=== PATIENT | female | born 1985 | race Two or more races ===

== ENCOUNTER 2024-05-31 00:20 | Emergency (ER) | payer MEDICAID, SELFPAY ==
[2024-05-31 00:22] VITALS: BMI 24.5
[2024-05-31 00:35] VITALS: BP 158/94; PULSE 95; RESP 20; TEMP 37.1; O2SAT 98
--- NOTE | 2024-05-31 00:49 | EDNOTE_ITS ---
ED General RME/HPI General Chief complaint: Abdominal Pain Stated complaint: Right abdominal pain radiating to flank NV Time Seen by Provider: 05/31/24 00:35 Source: patient, RN notes reviewed and old records reviewed Arrival date/time: 05/31/24 00:20 Mode of arrival: ambulatory Limitations: no limitations RME / HPI RME / HPI narrative: 39yof presents to ED for generalized burning sensation. Patient reports history of February 2024. Since then, patient reports burning to incision that spreads to entire body. She has seen her PCP multiple times for same complaint. No fever, shortness of breath, chest pain, vomiting/diarrhea, abdominal pain or urinary symptoms reported. Ibuprofen taken yesterday with mild relief. Industrial Ecologist used for [place] Islander translation. Related Data Home Medications ?Medication ?Instructions ?Recorded ?Confirmed prenat.vits,zeferino,[id number] 1 tab PO QDAY 11/06/23 01/17/24 Previous Rx's ?Medication ?Instructions ?Recorded acetaminophen 500 mg tablet 1,000 mg (2 x 500 mg) PO Q6H PRN 05/31/24 (Tylenol Extra Strength) pain #60 tabs ibuprofen 600 mg tablet 600 mg PO Q6H PRN pain #30 tabs 05/31/24 Allergies Allergy/AdvReac Type Severity Reaction Status Date / Time shrimp Allergy Unknown Verified 03/29/24 13:56 wheat Allergy Unknown Verified 03/29/24 13:56 chicken derived Allergy Anaphylaxis Unverified 03/29/24 13:56 guava Allergy Anaphylaxis Verified 03/29/24 13:56 pineapple Allergy Anaphylaxis Verified 03/29/24 13:56 CHICKEN BROTH Allergy Anaphylaxis Uncoded 03/29/24 13:56 chicken seasoning Allergy Uncoded 03/29/24 13:56 Review of Systems Review of Systems Systems Reviewed: All systems reviewed, normal except as documented Constitutional Constitutional: Denies chills, Denies fever(s) and Denies headache(s) ENT Ears, Nose, Mouth, and Throat: Denies headache(s) Cardiovascular Cardiovascular: Denies chest pain and Denies dyspnea Respiratory Respiratory: Denies dyspnea Gastrointestinal Gastrointestinal: Denies abdominal pain, Denies loose stools, Denies nausea and Denies vomiting Genitourinary Genitourinary: Denies dysuria, Denies flank pain, Denies hematuria and Denies pelvic pain Integumentary/Breasts Skin/Breast: Denies rash Neurologic Neurologic: Denies headache(s) Past Medical History Past Medical History CARDIAC: Positive Hypertension Surgical History SURGICAL: Positive Section Social History SMOKING STATUS: Never smoker SUBSTANCE USE: does not use ALCOHOL: Never ED Exam General Limitations: Present no limitations General appearance: Present alert and in no apparent distress Head Head exam: Present atraumatic and normocephalic Eye Eye exam: Present normal appearance, PERRL and EOMI ENT ENT exam: Present normal exam and mucous membranes moist Neck Neck exam: Present normal inspection and full ROM Chest Chest inspection: Present normal inspection and symmetric chest wall rise Respiratory Respiratory exam: Present normal lung sounds bilaterally; Absent respiratory distress Cardiovascular Cardiovascular exam: Present regular rate and normal rhythm Abdominal Exam Abdominal exam: Present soft; Absent distention, tenderness, guarding or rebound Extremities Exam Extremities exam: Present normal inspection and full ROM Back Exam Back exam: Absent CVA tenderness (R) or CVA tenderness (L) Neurological Exam Neurological exam: Present alert and oriented X3 Psychiatric Psychiatric exam: Present normal affect and normal mood Skin Skin exam: Present warm, dry, intact and normal color Course Quality Measures none Orders Category Date Time Status CBC Stat Lab 05/31/24 01:01 Completed CMP [Comprehensive Metabolic Panel] Stat Lab 05/31/24 01:01 Completed HCG Qualitative,Urine Stat Lab 05/31/24 02:40 Completed UA [Urinalysis] Stat Lab 05/31/24 02:40 Completed Acetaminophen Tab [Tylenol ES Tab] Med 05/31/24 00:50 Discontinued 1,000 mg PO X1 ONE HYDROcodone/APAP 10/325 [[place] 10/325] Med 05/31/24 02:53 Discontinued 1 tab PO X1 ONE Ketorolac Inj [Toradol Inj] Med 05/31/24 00:50 Discontinued 30 mg IM X1 ONE Vital Signs Vital signs: Vital Signs Temperature 98.8 F 05/31/24 00:35 Pulse Rate 95 05/31/24 00:35 Respiratory Rate 20 05/31/24 00:35 Blood Pressure 158/94 H 05/31/24 00:35 Pulse Oximetry (%) 98 05/31/24 00:35 Oxygen Delivery Method Room Air 05/31/24 00:35 [facility] Patient data External records reviewed:: [facility] previous records (03/29/2024 ED visit for skin infection) Clinical information provided by:: patient Social determinants that could affect healthcare access:: other (specify) (Poor access to healthcare, acculturation difficulty) Patient has the following chronic illnesses:: Hypertension How is presenting disease/condition affected by chronic disease/condition?: e xacerbated by Evaluation data The following diagnostics were reviewed and interpreted by me:: lab results Lab and/or radiology exams considered but not ordered:: CT abdomen/pelvis: Denies abdominal pain. No tenderness on exam Interpretation Summary: No leukocytosis Electrolytes wnl UA negative Medications Medications considered but not ordered:: No antibiotics recommended at this time Medication administrations:: Medication Administration History Discontinued Medications Acetaminophen (Acetaminophen 500 Mg Tablet) 1,000 mg PO X1 ONE Stop: 05/31/24 00:51 Last Admin: 05/31/24 01:24 Dose: 1,000 mg Documented By: ROBERT Hydrocodone Bitart/Acetaminophen (Hydrocodone/Apap 10/325 Tab) 1 tab PO X1 ONE Stop: 05/31/24 02:54 Last Admin: 05/31/24 03:02 Dose: 1 tab Documented By: MARIE Ketorolac Tromethamine (Ketorolac Inj 60 Mg/2 Ml Vial) 30 mg IM X1 ONE Stop: 05/31/24 00:51 Last Admin: 05/31/24 01:24 Dose: 30 mg Documented By: ROBERT Above medications administered in ED Consultations Consultation(s) initiated? (list below): No Diagnosis Differential Diagnosis ED Complaint MDM: Rash, contact dermatitis, cellulitis, abscess, allergic reaction, tinea Most likely diagnosis given after review of the tests above:: Generalized pain Admission Indicated Admission indicated?: not indicated Explain why admission is indicated or not indicated:: Patient is clinically stable for outpatient management Admission Request Was there a request for admission?: No Disposition Plan Disposition Plan: Discharge Discharge Attestation Discharge Attestation: The patient and all family members were given an opportunity to ask questions and understood the discharge instructions. Discharge instructions specifically effects, indications for sooner follow up or return to the emergency department, and the expected course of current diagnosis. Patient condition: Stable Medical Decision Making MDM Narrative MDM Narrative: 39yof presents to ED for generalized burning sensation. Patient reports history of February 2024. Since then, patient reports burning to incision that spreads to entire body. She has seen her PCP multiple times for same complaint. No fever, shortness of breath, chest pain, vomiting/diarrhea, abdominal pain or urinary symptoms reported. Ibuprofen taken yesterday with mild relief. Labs reviewed and reassuring. No evidence of infection on exam. Recommended close follow-up with PCP if symptoms persist or worsen. Stable for discharge, RTED precautions given. Differential Diagnosis Differential Diagnosis: Rash, contact dermatitis, cellulitis, abscess, allergic reaction, tinea Lab Data 05/31/24 01:01 05/31/24 01:01 Labs: Lab Results 05/31/24 05/31/24 Range/Units 01:01 02:40 WBC 7.4 (3.6-11.0) Thou/mm3 RBC 4.97 (4.00-5.20) Miln/mm3 Hgb 13.8 (12.0-16.0) g/dL Hct 40.2 (36.0-46.0) % MCV 81 (80-100) fL MCH 27.8 (25.0-35.0) pg MCHC 34.3 (31.0-37.0) g/dl RDW Std Deviation 35.5 L (36.4-46.3) fL Plt Count 388 (140-440) Thou/mm3 Neut % (Auto) 60 (37-80) % Lymph % (Auto) 28 (10-50) % [place] % (Auto) 7 (0-12) % Eos % (Auto) 4 (0-10) % Baso % (Auto) 0 (0-2.5) % Neut # (Auto) 4.5 (1.8-7.7) Thou/mm3 Lymph # (Auto) 2.1 (1.0-4.8) Thou/mm3 [place] # (Auto) 0.5 (0.0-0.8) Thou/mm3 Eos # (Auto) 0.3 (0.0-0.5) Thou/mm3 Baso # (Auto) 0.0 (0.0-0.2) Thou/mm3 Immature Gran # (Auto) 0.01 H (0.00-0.00) Thou/mm3 Absolute Nucleated RBC 0.00 (0.00-0.00) Thou/mm3 Immature Gran % 0 (0-0) % Nucleated RBC % 0 (0) /100 WBC Sodium 138 (136-145) mMol/L Potassium 3.9 (3.4-5.1) mMol/L Chloride 103 (98-107) mMol/L Carbon Dioxide 28.0 (20.0-31.0) mMol/L Anion Gap 7 (7-16) BUN 10 (9-23) mg/dL Creatinine 0.7 (0.6-1.3) mg/dL Estim Creat Clear Calc 89.0 (>60) mL/min eGFR > 60 (60 - ) See Note BUN/Creatinine Ratio 14 (12-20) Ratio Glucose 111 H (74-106) mg/dL Calculated Osmolality 275 (275-295) Calcium 10.1 (8.3-10.6) mg/dL Corrected Calcium 10.1 (8.5-10.1) mg/dL Total Bilirubin 0.4 (0.3-1.2) mg/dL AST 18 (0-34) U/L ALT 15 (10-49) U/L Alkaline Phosphatase 82 (46-116) U/L Total Protein 7.7 (5.7-8.2) gm/dL Albumin 5.2 H (3.5-5.0) gm/dL Globulin 2.5 (2.3-3.5) gm/dL Albumin/Globulin Ratio 2.1 (1.2-2.2) Ur Collection Type Clean Catch Urine Color Colorless A (Lt Yel-Yel) Urine Clarity Clear (Clear/Hazy) Urine pH 6.5 (5.0-7.0) Ur Specific [place] 1.007 (1.001-1.035) Urine Protein Negative (Neg - Trace) Urine Glucose (UA) Negative (Negative) Urine Ketones Negative (Negative) Urine Blood Negative (Negative) Urine Nitrite Negative (Negative) Urine Bilirubin Negative (Negative) Urine Urobilinogen (Auto) Negative (0.0-1.0) mg/dL Ur Leukocyte Esterase Negative (Negative) Urine RBC 1 (0-3) /hpf Urine WBC 2 (0-5) /hpf Ur Squamous Epith Cells 5 (0-5) /hpf Urine Bacteria Rare (None) Urine HCG, Qual Negative Discharge Plan Plan Patient Disposition: HOME (Self Care) Patient condition on transfer: Stable Prescriptions/Referrals Prescriptions/Med Rec: New acetaminophen [Tylenol Extra Strength] 500 mg tablet 1,000 mg PO Q6H PRN (Reason: pain) Qty: 60 0RF ibuprofen 600 mg tablet 600 mg PO Q6H PRN (Reason: pain) Qty: 30 0RF No Action prenat.vits,zeferino,[id number] Tablet 1 tab PO QDAY Referrals: Zaid Croft MD [Primary Care Provider] - In 1 week Problem List Clinical Impression: Generalized pain Patient/Caregiver Discharge Instructions Education Materials: ED Pain, Acute, Uncertain Cause Print Language: [place] Island[place] Stand Alone Forms: Jayna Award Info., Patient Portal Info Letter PA/EQUIPMENT TECH Supervising Physician PA/EQUIPMENT TECH Supervising Physician: Lalo
[2024-05-31 01:15] LABS: Basophils % (Auto) 0 % (0-2.5); Eosinophils # (Auto) 0.3 Thou/mm3 (0.0-0.5); Eosinophils % (Auto) 4 % (0-10); Hematocrit 40.2 % (36.0-46.0); Hemoglobin 13.8 g/dL (12.0-16.0); Immature Granulocytes % (Auto) 0 % (0-0); Immature Granulocytes Auto 0.01 Thou/mm3 (0.00-0.00); Lymphocytes # (Auto) 2.1 Thou/mm3 (1.0-4.8); Lymphocytes % (Auto) 28 % (10-50); Mean Corpuscular HGB Conc 34.3 g/dl (31.0-37.0); Mean Corpuscular Hemoglobin 27.8 pg (25.0-35.0); Mean Corpuscular Volume 81 fL (80-100); Monocytes # (Auto) 0.5 Thou/mm3 (0.0-0.8); Monocytes % (Auto) 7 % (0-12); Neutrophils # (Auto) 4.5 Thou/mm3 (1.8-7.7); Neutrophils % (Auto) 60 % (37-80); Nucleated Red Blood Cell % 0 /100 WBC (0); Platelet Count 388 Thou/mm3 (140-440); RDW Standard Deviation 35.5 fL (36.4-46.3); Red Blood Count 4.97 Miln/mm3 (4.00-5.20); White Blood Count 7.4 Thou/mm3 (3.6-11.0)
[2024-05-31] MEDS: ACETAMINOPHEN 500 MG TABLET 1000 MG PO (01:24)
[2024-05-31] MEDS: KETOROLAC INJ 60 MG/2 ML VIAL 30 MG IM (01:24)
[2024-05-31 01:33] LABS: Alanine Aminotransferase 15 U/L (10-49); Albumin, Serum 5.2 gm/dL (3.5-5.0); Albumin/Globulin Ratio 2.1 (1.2-2.2); Alkaline Phosphatase 82 U/L (46-116); Anion Gap 7 (7-16); Aspartate Amino Transferase 18 U/L (0-34); BUN/Creatinine Ratio 14 Ratio (12-20); Bilirubin,Total 0.4 mg/dL (0.3-1.2); Blood Urea Nitrogen 10 mg/dL (9-23); Calcium 10.1 mg/dL (8.3-10.6); Calcium (Corrected) 10.1 mg/dL (8.5-10.1); Chloride 103 mMol/L (98-107); Creatinine (Component) 0.7 mg/dL (0.6-1.3); Globulin 2.5 gm/dL (2.3-3.5); Glucose 111 mg/dL (74-106); Osmolality,Calculated 275 (275-295); Potassium 3.9 mMol/L (3.4-5.1); Sodium 138 mMol/L (136-145); Total Protein 7.7 gm/dL (5.7-8.2); eGFR > 60 See Note
[2024-05-31 02:46] LABS: Collection Type, Urine Clean Catch
[2024-05-31] MEDS: HYDROcodone/APAP 10/325 TAB PO (03:02)
[2024-05-31 03:03] LABS: Bacteria,Urine Rare; Bilirubin,Urine Negative (Negative); Blood,Urine Negative (Negative); Clarity,Urine Clear (Clear/Hazy); Color,Urine Colorless (Lt Yel-Yel); Glucose, Urine Negative (Negative); Ketones,Urine Negative (Negative); Leukocyte Esterase,Urine Negative (Negative); Nitrite,Urine Negative (Negative); PH,Urine 6.5 (5.0-7.0); Protein,Urine Negative (Neg - Trace); RBC,Urine 1 /hpf (0-3); Specific Gravity,Urine 1.007 (1.001-1.035); Squamous Epithelial Cell,Urine 5 /hpf (0-5); Urobilinogen,Urine Negative mg/dL (0.0-1.0); WBC,Urine 2 /hpf (0-5)
[2024-05-31 03:16] LABS: HCG Qualitative,Urine Negative
== END 2024-05-31 03:51 | disposition home or self-care (01) ==
PROVIDERS: Physician Assistant; Emergency Provider Emergency Medicine; PCP Family Medicine
DX: R52 Pain, unspecified (principal)
CPT/HCPCS: 36415; 80053; 81001; 81025; 85025; 96372; 99283; J1885; A9270

== ENCOUNTER 2024-06-04 21:31 | Emergency (ER) | payer MEDICAID, SELFPAY ==
[2024-06-04 21:32] VITALS: BMI 54.1
[2024-06-04 22:12] VITALS: BP 154/92; PULSE 77; RESP 20; TEMP 36.9; O2SAT 99
--- NOTE | 2024-06-04 22:47 | EDRME_ITS ---
Rapid Medical Screening Exam RME Arrival date/time: 06/04/24 21:31 39-year-old female past medical history of section back in February presents emergency department complaining of right-sided flank pain and right- sided abdominal pain patient reports pain is burning in nature 03/01. Chief Complaint: General Adult/Misc Complain Time Seen by Provider: 06/04/24 21:47 Vital signs: Vital Signs Temperature 98.4 F 06/04/24 22:12 Pulse Rate 77 06/04/24 22:12 Respiratory Rate 20 06/04/24 22:12 Blood Pressure 154/92 H 06/04/24 22:12 Pulse Oximetry (%) 99 06/04/24 22:12 Vital signs reviewed by provider: Yes
--- NOTE | 2024-06-04 22:47 | XR_ITS ---
Examination: CT abdomen and pelvis without contrast. Coronal 3-D reconstructions. Sagittal 2-D reconstructions. Date and time of exam:June 05, 2024 1203 hours INDICATIONS: Right flank pain abdominal pain beginning 3 weeks ago Coarsened: 01/21/2021 CTDI: vol (mGy): 6.31 DLP: (mGycm): 337 Technique: Axial images of the abdomen have been obtained, 3 mm slice thickness Intravenous contrast material has not been administered. Low dose protocols were performed. One or more of the following dose reduction techniques were used; automated exposure control, adjustment of the mA and/or KV according to patient size, use of iterative reconstruction technique. Findings: No focal liver or splenic lesion No gallstones No pancreatic or adrenal mass No renal or ureteral calculi, no hydronephrosis 6 mm fat-containing umbilical hernia Aorta normal size Normal appendix No bowel obstruction No adnexal mass Urinary bladder intact The osseous structures are intact IMPRESSION: No acute process in the abdomen or pelvis
[2024-06-04 23:17] LABS: Basophils % (Auto) 1 % (0-2.5); Eosinophils # (Auto) 0.2 Thou/mm3 (0.0-0.5); Eosinophils % (Auto) 4 % (0-10); Hematocrit 37.4 % (36.0-46.0); Hemoglobin 12.7 g/dL (12.0-16.0); Immature Granulocytes % (Auto) 0 % (0-0); Immature Granulocytes Auto 0.02 Thou/mm3 (0.00-0.00); Lymphocytes # (Auto) 2.1 Thou/mm3 (1.0-4.8); Lymphocytes % (Auto) 33 % (10-50); Mean Corpuscular Hemoglobin 27.6 pg (25.0-35.0); Mean Corpuscular Volume 81 fL (80-100); Monocytes # (Auto) 0.5 Thou/mm3 (0.0-0.8); Monocytes % (Auto) 8 % (0-12); Neutrophils # (Auto) 3.5 Thou/mm3 (1.8-7.7); Neutrophils % (Auto) 55 % (37-80); Nucleated Red Blood Cell % 0 /100 WBC (0); Platelet Count 379 Thou/mm3 (140-440); RDW Standard Deviation 36.1 fL (36.4-46.3); White Blood Count 6.4 Thou/mm3 (3.6-11.0)
[2024-06-04] MEDS: KETOROLAC INJ 60 MG/2 ML VIAL 30 MG IM (23:24)
[2024-06-04 23:30] LABS: Alanine Aminotransferase 12 U/L (10-49); Albumin, Serum 5.1 gm/dL (3.5-5.0); Albumin/Globulin Ratio 2.2 (1.2-2.2); Alkaline Phosphatase 71 U/L (46-116); Anion Gap 8 (7-16); Aspartate Amino Transferase 15 U/L (0-34); BUN/Creatinine Ratio 22 Ratio (12-20); Bilirubin,Total 0.4 mg/dL (0.3-1.2); Blood Urea Nitrogen 13 mg/dL (9-23); Calcium 10.2 mg/dL (8.3-10.6); Calcium (Corrected) 10.2 mg/dL (8.5-10.1); Carbon Dioxide 25.9 mMol/L (20.0-31.0); Chloride 104 mMol/L (98-107); Creatinine (Component) 0.6 mg/dL (0.6-1.3); Estimated Creatinine Clearance 160.3 mL/min (>60); Globulin 2.3 gm/dL (2.3-3.5); Glucose 93 mg/dL (74-106); Lipase 36 U/L (12-53); Osmolality,Calculated 275 (275-295); Potassium 4.1 mMol/L (3.4-5.1); Sodium 138 mMol/L (136-145); Total Protein 7.4 gm/dL (5.7-8.2); eGFR > 60 See Note
[2024-06-04 23:33] LABS: Collection Type, Urine Clean Catch
[2024-06-04 23:43] LABS: HCG,Qualitative Serum Negative
[2024-06-05 00:08] LABS: Bacteria,Urine 3+; Bilirubin,Urine Negative (Negative); Blood,Urine Negative (Negative); Clarity,Urine Clear (Clear/Hazy); Color,Urine Colorless (Lt Yel-Yel); Glucose, Urine Negative (Negative); Hyaline Casts,Urine < 1 /hpf (0-1); Ketones,Urine Negative (Negative); Leukocyte Esterase,Urine Positive (Negative); Nitrite,Urine Negative (Negative); PH,Urine 6.5 (5.0-7.0); Protein,Urine Negative (Neg - Trace); RBC,Urine < 1 /hpf (0-3); Specific Gravity,Urine 1.009 (1.001-1.035); Squamous Epithelial Cell,Urine 8 /hpf (0-5); Urobilinogen,Urine Negative mg/dL (0.0-1.0); WBC,Urine 4 /hpf (0-5)
[2024-06-05 00:19] LABS: Culture Indicated,Urine Yes
--- NOTE | 2024-06-05 01:29 | PRELIM_ITS ---
CT scan of the abdomen and pelvis without intravenous contrast (axial sections with sagittal and yenni nal reformats) June 05, 2024 0003 hours Clinical History: Right flank pain and right upper and low er abdominal pain.Comparison: None.Findings:The lung bases are clear.The liver, gallbladder, pancreas , spleen, kidneys and adrenals are unremarkable on this noncontrast study.No evidence of bowel obstru ction. The appendix is within normal limits.There is no mesenteric or retroperitoneal adenopathy.The urinary bladder is unremarkable. There is no free fluid or free air.The osseous structures are unrema rkable.The uterus and ovaries are within normal limits.Impression:No evidence of acute intra-abdomina l or pelvic pathology. Report Electronically Signed By: Magan Duvall 06/05/2024 1:29:15 AM [EST]
--- NOTE | 2024-06-05 03:18 | PD.EDABDPN ---
ED Abdominal Pain RME/HPI General Chief Complaint: General Adult/Misc Complain Stated complaint: BURNING FEELING ON RIGHT SIDE OF BODY Time seen by provider: 06/04/24 21:47 Arrival date/time: 06/04/24 21:31 39-year-old female past medical history of section back in February presents emergency department complaining of right-sided flank pain and right-sided abdominal pain patient reports pain is burning in nature 03/01. Limitations: no limitations RME / HPI RME / HPI narrative: 06/04/24 21:31 39-year-old female past medical history of section back in February presents emergency department complaining of right-sided flank pain and right-sided abdominal pain patient reports pain is burning in nature 03/01. Related Data Home Medications ?Medication ?Instructions ?Recorded ?Confirmed prenat.vits,zeferino,[id number] 1 tab PO QDAY 11/06/23 01/17/24 Previous Rx's ?Medication ?Instructions ?Recorded acetaminophen 500 mg tablet 1,000 mg (2 x 500 mg) PO Q6H PRN 05/31/24 (Tylenol Extra Strength) pain #60 tabs ibuprofen 600 mg tablet 600 mg PO Q6H PRN pain #30 tabs 05/31/24 Allergies Allergy/AdvReac Type Severity Reaction Status Date / Time shrimp Allergy Unknown Verified 03/29/24 13:56 wheat Allergy Unknown Verified 03/29/24 13:56 chicken derived Allergy Anaphylaxis Unverified 03/29/24 13:56 guava Allergy Anaphylaxis Verified 03/29/24 13:56 pineapple Allergy Anaphylaxis Verified 03/29/24 13:56 CHICKEN BROTH Allergy Anaphylaxis Uncoded 03/29/24 13:56 chicken seasoning Allergy Uncoded 03/29/24 13:56 Review of Systems Review of Systems Systems Reviewed: All systems reviewed, normal except as documented Constitutional Constitutional: Reports system reviewed and no additional complaints, except as documented, Denies body ache(s), Denies chills and Denies fever(s) Eyes Eyes: Reports system reviewed and no additional complaints, except as documented and Denies change in vision ENT Ears, Nose, Mouth, and Throat: Reports system reviewed and no additional complaints, except as documented, Denies disequilibrium, Denies dizziness, Denies sore throat and Denies vertigo Cardiovascular Cardiovascular: Reports system reviewed and no additional complaints, except as documented, Denies chest pain and Denies dyspnea Respiratory Respiratory: Reports system reviewed and no additional complaints, except as documented, Denies chest congestion, Denies cough and Denies dyspnea Gastrointestinal Gastrointestinal: Reports system reviewed and no additional complaints, except as documented, Reports abdominal pain, Denies nausea and Denies vomiting Musculoskeletal Musculoskeletal: Reports system reviewed and no additional complaints, except as documented, Denies abnormal gait, Denies arthralgias and Reports back pain Integumentary/Breasts Skin/Breast: Reports system reviewed and no additional complaints, except as documented, Denies erythema, Denies rash and Denies wounds Neurologic Neurologic: Reports system reviewed and no additional complaints, except as documented, Denies abnormal gait, Denies disequilibrium, Denies dizziness and Denies vertigo Past Medical History Past Medical History NEUROLOGIC: Negative Neurological Disorders or Seizures CARDIAC: Positive Cardiac Disorders and Hypertension; Negative Congestive Heart Failure RESPIRATORY: Negative Chronic Obstructive Pulmonary Disease (COPD) or Asthma GASTROINTESTINAL: Positive Gastrointestinal Disorders and Ulcer GENITOURINARY: Negative Genitourinary Disorders or Renal Disease MUSCULOSKELETAL: Negative Musculoskeletal Disorders ENDOCRINE: Negative Endocrine Disorders, Diabetes Mellitus Type 1 or Diabetes Mellitus Type 2 HEMATOLOGIC: Negative Blood Disorders or Sickle Cell Disease OTHER HISTORY: Negative Autoimmune Disease, Falls, Blood Transfusions, Blood Transfusion Reaction, Anesthesia Reactions or Cancer Family History FAMILY HISTORY: Negative Family Psychiatric Problems, Family Respiratory Disorders, Family Cardiac Disorders, Family Gastrointestinal Problems, Family Cancer, Family Surgery or Family Anesthesia Reaction Surgical History SURGICAL: Positive Section Social History SMOKING STATUS: Never smoker SUBSTANCE USE: does not use ED Exam General Limitations: Present no limitations General appearance: Present alert and in no apparent distress Head Head exam: Present atraumatic Eye Eye exam: Present normal appearance, PERRL and EOMI ENT ENT exam: Present normal exam, normal oropharynx and mucous membranes moist Neck Neck exam: Present normal inspection, full ROM and trachea midline Chest Chest inspection: Present normal inspection and symmetric chest wall rise Respiratory Respiratory exam: Present normal lung sounds bilaterally Cardiovascular Cardiovascular exam: Present regular rate, normal rhythm and normal heart sounds Abdominal Exam Abdominal exam: Present soft and normal bowel sounds Extremities Exam Extremities exam: Present normal inspection and full ROM Back Exam Back exam: Present normal inspection and full ROM Neurological Exam Neurological exam: Present alert, oriented X3 and CN II-XII intact Psychiatric Psychiatric exam: Present normal affect and normal mood Skin Skin exam: Present warm, dry, intact and normal color Course Quality Measures none Orders Category Date Time Status CT abdomen pelvis wo con Stat Exams 06/04/24 22:47 Taken CBC Stat Lab 06/04/24 22:58 Completed CMP [Comprehensive Metabolic Panel] Stat Lab 06/04/24 22:58 Completed HCG,Qualitative Serum Stat Lab 06/04/24 22:58 Completed Lipase Stat Lab 06/04/24 22:58 Completed Urinalysis, C/S if Indicated Stat Lab 06/04/24 23:18 Completed Urine Culture Stat Lab 06/04/24 23:18 Received Ketorolac Inj [Toradol Inj] Med 06/04/24 22:47 Discontinued 30 mg IM X1 ONE Vital Signs Vital signs: Vital Signs Temperature 98.4 F 06/04/24 22:12 Pulse Rate 77 06/04/24 22:12 Respiratory Rate 20 06/04/24 22:12 Blood Pressure 154/92 H 06/04/24 22:12 Pulse Oximetry (%) 99 06/04/24 22:12 99% room air with normal limits Abdominal Pain MDM MDM Narrative MDM Narrative:: 39-year-old female past medical history of section back in February presents emergency department complaining of right-sided flank pain and right-sided abdominal pain patient reports pain is burning in nature 03/01. Patient appears nontoxic and is hemodynamic stable. CBC unremarkable for any anemia or leukocytosis. CMP was unremarkable. Urinalysis and CT scanning of abdomen and pelvis was also unremarkable. Patient data External records reviewed:: [facility] previous records Clinical information provided by:: patient Social determinants that could affect healthcare access:: none Patient has the following chronic illnesses:: See chart How is presenting disease/condition affected by chronic disease/condition?: uneffected by Evaluation data The following diagnostics were reviewed and interpreted by me:: lab results and radiology exam(s) Lab and/or radiology exams considered but not ordered:: Ordered Interpretation Summary: Interpreted by me Medications / Prescriptions Medications or Prescriptions considered but not ordered:: Ordered Medication administrations:: Medication Administration History Discontinued Medications Ketorolac Tromethamine (Ketorolac Inj 60 Mg/2 Ml Vial) 30 mg IM X1 ONE Stop: 06/04/24 22:48 Last Admin: 06/04/24 23:24 Dose: 30 mg Documented By: EE Given Consultations Consultation(s) initiated? (list below): No Diagnosis Differential diagnosis abdominal pain: abdominal pain, acute appendicitis, calculus of kidney, constipation, diverticulitis, gastroenteritis and pancreatitis Most likely diagnosis given after review of the tests above:: Abdominal pain Admission Indicated Admission indicated?: not indicated Admission Request Was there a request for admission?: No Disposition Plan Disposition Plan: Discharge Discharge Attestation Discharge Attestation: The patient and all family members were given an opportunity to ask questions and understood the discharge instructions. Discharge instructions specifically effects, indications for sooner follow up or return to the emergency department, and the expected course of current diagnosis. Patient condition: Stable Discharge Plan Plan Patient Disposition: HOME (Self Care) Disposition Comment: Stable Prescriptions/Referrals Prescriptions/Med Rec: No Action prenat.vits,zeferino,[id number] Tablet 1 tab PO QDAY acetaminophen [Tylenol Extra Strength] 500 mg tablet 1,000 mg PO Q6H PRN (Reason: pain) Qty: 60 0RF ibuprofen 600 mg tablet 600 mg PO Q6H PRN (Reason: pain) Qty: 30 0RF Referrals: Zaid Croft MD [Primary Care Provider] - In 1 week Problem List Clinical Impression: Abdominal pain Patient/Caregiver Discharge Instructions Discharge Activity: activity as tolerated Education Materials: Abdominal Pain Additional Instructions: Take [id number] Tylenol or ibuprofen as needed for pain. Follow-up with primary care provider in 2 to 3 days. Return to emergency department for any worsening symptoms or as needed. Print Language: [place]uvian Stand Alone Forms: Jayna Award Info., Patient Portal Info Letter PA/SPINNING FRAME CHANGER Supervising Physician PA/SPINNING FRAME CHANGER Supervising Physician: Dr. Jeffries
[2024-06-05 03:22] VITALS: BP 137/69; PULSE 78; RESP 18; O2SAT 99
== END 2024-06-05 03:31 | disposition home or self-care (01) ==
PROVIDERS: Emergency Provider Emergency Medicine; PCP Family Medicine
DX: R10.9 Unspecified abdominal pain (principal)
CPT/HCPCS: 36415; 74176; 80053; 81001; 83690; 84703; 85025; 87086; 96372; 99284; J1885

== ENCOUNTER 2025-01-06 20:28 | Emergency (ER) | payer MEDICAID, SELFPAY ==
[2025-01-06 20:31] VITALS: BMI 25.4
[2025-01-06 20:45] VITALS: BP 148/89; PULSE 71; RESP 18; TEMP 37.7; O2SAT 99
[2025-01-06 21:39] LABS: Collection Type, Urine Voided
[2025-01-06 21:47] LABS: Bilirubin,Urine Negative (Negative); Blood,Urine 3+ (Negative); Clarity,Urine Clear (Clear/Hazy); Color,Urine Lt-Yellow (Lt Yel-Yel); Glucose, Urine Negative (Negative); Ketones,Urine Negative (Negative); Leukocyte Esterase,Urine Positive (Negative); Nitrite,Urine Negative (Negative); PH,Urine 6.0 (5.0-7.0); Protein,Urine Negative (Neg - Trace); RBC,Urine 93 /hpf (0-3); Specific Gravity,Urine 1.015 (1.001-1.035); Squamous Epithelial Cell,Urine 5 /hpf (0-5); Urobilinogen,Urine Negative mg/dL (0.0-1.0); WBC,Urine 85 /hpf (0-5)
--- NOTE | 2025-01-06 22:52 | EDNOTE_ITS ---
ED Female Urogenital RME/HPI General Chief complaint: General Adult/Misc Complain Stated complaint: PAINFULL URINATION Time Seen by Provider: 01/06/25 20:37 Arrival date/time: 01/06/25 20:28 This is a case of 39-year-old female with no medical history came in in the emergency room due to painful urination burning in character with vaginal irritation and discharge patient was seen 12/29/2023 where she was given cephalexin for urinary tract infection which did not give any relief worsening of the symptoms this patient decided to sought consult here in the emergency room denies any abdominal pain back pain flank pain nausea vomiting denies any fever chills Limitations: no limitations Related Data Home Medications ?Medication ?Instructions ?Recorded ?Confirmed prenat.vits,zeferino,[id number] 1 tab PO QDAY 11/06/23 01/17/24 Previous Rx's ?Medication ?Instructions ?Recorded acetaminophen 500 mg tablet 1,000 mg (2 x 500 mg) PO Q 6H PRN 05/31/24 (Tylenol Extra Strength) pain #60 tabs ibuprofen 600 mg tablet 600 mg PO Q6H PRN pain #30 t abs 05/31/24 fluconazole 200 mg tablet 200 mg PO QDAY #1 tab metronidazole 500 mg tablet 500 mg PO BID #20 tabs phenazopyridine 200 mg tablet 200 mg PO TID #6 tabs (Pyridium) sulfamethoxazole 800 1 tab PO BID #20 tabs mg-trimethoprim 160 mg tablet (Bactrim DS) Allergies Allergy/AdvReac Type Severity Reaction Status Date / Time shrimp Allergy Unknown Verified 01/06/25 22:49 wheat Allergy Unknown Verified 01/06/25 22:49 chicken derived Allergy Anaphylaxis Verified 01/06/25 22:49 guava Allergy Anaphylaxis Verified 01/06/25 22:49 pineapple Allergy Anaphylaxis Verified 01/06/25 22:49 CHICKEN BROTH Allergy Anaphylaxis Uncoded 01/06/25 22:48 chicken seasoning Allergy Uncoded 01/06/25 22:48 Review of Systems Review of Systems Systems Reviewed: All systems reviewed, normal except as documented Constitutional Constitutional: Reports system reviewed and no additional complaints, except as documented and Reports as per HPI Cardiovascular Cardiovascular: Reports system reviewed and no additional complaints, except as documented and Reports as per HPI Respiratory Respiratory: Reports system reviewed and no additional complaints, except as documented and Reports as per HPI Gastrointestinal Gastrointestinal: Reports system reviewed and no additional complaints, except as documented and Reports as per HPI Genitourinary Genitourinary: Reports system reviewed and no additional complaints, except as documented, Reports as per HPI, Denies abnormal menses, Denies abnormal vaginal bleeding, Denies amenorrhea, Denies change in libido, Denies difficulty conceiving, Denies difficulty voiding, Denies dysmenorrhea, Denies dyspareunia, Reports dysuria, Denies flank pain, Denies genital lesions, Denies genital pruritis, Denies hematuria, Denies hot flashes, Denies light periods, Denies menorrhagia, Denies metrorrhagia, Denies nipple discharge, Denies nocturia, Denies pelvic pain, Denies post void dribbling, Denies prolapse symptoms, Denies sexual dysfunction, Denies urinary frequency, Denies urinary incontinence, Denies urinary hesitancy, Reports urinary urgency, Reports vaginal discharge, Denies vaginal dryness, Reports vaginal odor and Reports vaginal pruritus Integumentary/Breasts Skin/Breast: Denies nipple discharge Neurologic Neurologic: Reports system reviewed and no additional complaints, except as documented and Reports as per HPI Psychiatric Psychiatric: Denies change in libido Endocrine Endocrine: Denies change in libido Past Medical History Past Medical History NEUROLOGIC: Negative Neurological Disorders or Seizures CARDIAC: Positive Cardiac Disorders and Hypertension; Negative Congestive Heart Failure RESPIRATORY: Negative Chronic Obstructive Pulmonary Disease (COPD) or Asthma GASTROINTESTINAL: Positive Gastrointestinal Disorders and Ulcer GENITOURINARY: Negative Genitourinary Disorders or Renal Disease MUSCULOSKELETAL: Negative Musculoskeletal Disorders ENDOCRINE: Negative Endocrine Disorders, Diabetes Mellitus Type 1 or Diabetes Mellitus Type 2 HEMATOLOGIC: Negative Blood Disorders or Sickle Cell Disease OTHER HISTORY: Negative Autoimmune Disease, Falls, Blood Transfusions, Blood Transfusion Reaction, Anesthesia Reactions or Cancer Family History FAMILY HISTORY: Negative Family Psychiatric Problems, Family Respiratory Disorders, Family Cardiac Disorders, Family Gastrointestinal Problems, Family Cancer, Family Surgery or Family Anesthesia Reaction Surgical History SURGICAL: Positive Section Social History SMOKING STATUS: Never smoker SUBSTANCE USE: does not use ED Exam General Limitations: Present no limitations General appearance: Present alert, in no apparent distress and other (Patient is awake alert oriented not in distress nontoxic looking well-hydrated well- nourished) Head Head exam: Present atraumatic, normocephalic and normal inspection Eye Eye exam: Present normal appearance, PERRL and EOMI ENT ENT exam: Present normal exam, normal oropharynx and mucous membranes moist Neck Neck exam: Present normal inspection, full ROM and trachea midline; Absent tenderness Chest Chest inspection: Present normal inspection and symmetric chest wall rise; Absent tenderness Respiratory Respiratory exam: Present normal lung sounds bilaterally; Absent respiratory distress, wheezes, stridor, accessory muscle use or prolonged expiratory phase Cardiovascular Cardiovascular exam: Present regular rate, normal rhythm and normal heart sounds; Absent bradycardia, tachycardia, irregular rhythm, systolic murmur or diastolic murmur Abdominal Exam Abdominal exam: Present soft and normal bowel sounds; Absent distention, tenderness, guarding, rebound, rigidity, diminished bowel sounds, hyperactive bowel sounds, hypoactive bowel sounds, organomegaly, trauma, incision, psoas sign, obturator sign, heel tap sign, Kirby's sign, Rovsing's sign, tenderness at McBurney's Point or hernia Extremities Exam Extremities exam: Present normal inspection and full ROM Back Exam Back exam: Present normal inspection and full ROM Neurological Exam Neurological exam: Present alert, oriented X3, CN II-XII intact, normal gait and reflexes normal; Absent motor sensory deficit Psychiatric Psychiatric exam: Present normal affect and normal mood Skin Skin exam: Present warm, dry, intact and normal color Course Quality Measures none Orders Category Date Time Status Bacterial Vaginal Panel Stat Lab 01/06/25 Ordered GC Culture Stat Lab 01/06/25 21:05 Received Urinalysis Stat Lab 01/06/25 21:30 Completed cefTRIAXone [Rocephin] 1,000 mg Med 01/06/25 22:36 Discontinued Lidocaine 1% 20 ml [Xylocaine 1% 20 ML] 2.1 ml IM X1 Vital Signs Vital signs: Vital Signs Temperature 99.8 F 01/06/25 20:45 Pulse Rate 71 01/06/25 20:45 Respiratory Rate 18 01/06/25 20:45 Blood Pressure 148/89 H 01/06/25 20:45 Pulse Oximetry (%) 99 01/06/25 20:45 Oxygen Delivery Method Room Air 01/06/25 20:45 Patient is afebrile not tachycardic not tachypneic BP stable not hypoxic oxygen saturation is 99% in room air Urogenital - Female MDM Narrative MDM Narrative:: This is a case of 39-year-old female with no medical history came in in the emergency room due to painful urination burning in character with vaginal irritation and discharge patient was seen 12/29/2023 where she was given cephalexin for urinary tract infection which did not give any relief worsening of the symptoms this patient decided to sought consult here in the emergency room denies any abdominal pain back pain flank pain nausea vomiting denies any fever chills patient physical examination patient is awake alert oriented not in distress nontoxic looking well-hydrated well-nourished abdominal exam is benign nonsurgical no guarding no rebound no rigidity no tenderness no CVA tenderness negative psoas negative straight or negative Rovsing's negative Kermit's no Kirby sign negative CVA tenderness bladder is not distended not tender pelvic exam was deferred patient refused STD test was ordered and bacterial vaginosis was also ordered pending result urinalysis showed blood and WBC in the urine suggestive of urinary tract infection patient was given ceftriaxone IM here in [facility] emergency room and was prescribed with Bactrim for UTI patient was also prescribed with Diflucan for possible Anneliese infection and metronidazole for vaginitis safe sex was advised patient will follow-up with PCP in 2 days for evaluation worsening symptoms or any emergent concern advised to return to the emergency room immediately or call [phone] Patient was advised to call medical records for the results of his test Patient was discharged with comfortable condition walking with stable gait. Patient verbalized no further complains explained diagnosis and answered patient question. Patient is comfortable with the proposed management plan including the need to follow up with his/her primary care physician and any specialist if applicable Discussed patient for any urgent condition or worsening sx, He/She needed to go to emergency room immediately or call 911. Patient acknowledge the responsibility to follow up as instructed and to monitor her/his symptoms. For any persistence of the symptoms for more than 3-5 days return precaution advised. Discussed the result of the test and was given printed discharge instruction Patient data External records reviewed:: [facility] previous records Clinical information provided by:: patient Social determinants that could affect healthcare access:: none Patient has the following chronic illnesses:: None How is presenting disease/condition affected by chronic disease/condition?: no chronic disease Evaluation data The following diagnostics were reviewed and interpreted by me:: lab results Lab and/or radiology exams considered but not ordered:: Reviewed Interpretation Summary: Reviewed Medications / Prescriptions Medications or Prescriptions considered but not ordered:: Given Medication administrations:: Medication Administration History Discontinued Medications Ceftriaxone Sodium 1,000 mg/ (Lidocaine HCl 2.1 ml) 0 mg IM X1 ONE Stop: 01/06/25 22:37 Given Consultations Consultation(s) initiated? (list below): No Diagnosis Urogenital Female Differential Diagnosis: urinary tract infection, bacterial vaginosis, trichomoniasis and vaginitis Most likely diagnosis given after review of the tests above:: Vaginitis urinary tract infection Admission Indicated Admission indicated?: not indicated Explain why admission is indicated or not indicated:: Not indicated Admission Request Was there a request for admission?: No Admission Attestation Admission request attestation: Not indicated Disposition Plan Disposition Plan: Discharge Discharge Attestation Discharge Attestation: The patient and all family members were given an opportunity to ask questions and understood the discharge instructions. Discharge instructions specifically effects, indications for sooner follow up or return to the emergency department, and the expected course of current diagnosis. Patient condition: Stable Discharge Plan Plan Patient Disposition: HOME (Self Care) Patient condition on transfer: Stable Prescriptions/Referrals Prescriptions/Med Rec: New sulfamethoxazole-trimethoprim [Bactrim DS] 800-160 mg tablet 1 tab PO BID Qty: 20 0RF fluconazole 200 mg tablet 200 mg PO QDAY Qty: 1 0RF metronidazole 500 mg tablet 500 mg PO BID Qty: 20 0RF phenazopyridine [Pyridium] 200 mg tablet 200 mg PO TID Qty: 6 0RF No Action prenat.vits,zeferino,[id number] Tablet 1 tab PO QDAY acetaminophen [Tylenol Extra Strength] 500 mg tablet 1,000 mg PO Q6H PRN (Reason: pain) Qty: 60 0RF ibuprofen 600 mg tablet 600 mg PO Q6H PRN (Reason: pain) Qty: 30 0RF Referrals: Zaid Croft MD [Primary Care Provider] - In 1 week Problem List Clinical Impression: Urinary tract infection, Vaginitis Patient/Caregiver Discharge Instructions Education Materials: Preventing Vaginitis, Understanding Urinary Tract ... Additional Instructions: Follow-up with your primary care physician in 2 days for reevaluation worsening symptoms or any emergent concern call 911 or go to the nearest emergency room take your medication as directed finish the course of antibiotic call medical record for the result of your STD test safe sex is advised Print Language: Kiswahili Stand Alone Forms: Janya Award Info., Patient Portal Info Letter PA/HIGH PRESSURE BOILER OPERATOR Supervising Physician PA/HIGH PRESSURE BOILER OPERATOR Supervising Physician: dr ramesh
[2025-01-06] MEDS: cefTRIAXone 1,000 MG, LIDOCAINE 1% 20 ML 2.1 ML IM (22:55)
[2025-01-07 10:03] LABS: BVAG Candida Positive (Negative); Bacterial Vaginosis Markers Negative (Negative); Candida glabrata Negative (Negative); Candida krusei PCR Negative (Negative); Trichomonas Negative (Negative)
== END 2025-01-06 23:11 | disposition home or self-care (01) ==
PROVIDERS: Nurse Practitioner Family; Emergency Provider Family Medicine; PCP Family Medicine
DX: N39.0 Urinary tract infection, site not specified (principal); N76.0 Acute vaginitis; I10 Essential (primary) hypertension
CPT/HCPCS: 81001; 81514; 87081; 96372; 99283; J0696; J3490

== ENCOUNTER → 2025-01-29 | Outpatient (CLI) | payer MEDICAID, SELFPAY ==
[2025-01-29 09:35] LABS: HCG Qualitative,Urine Negative
--- NOTE | 2025-01-29 10:00 | XR_ITS ---
Examination: HECTOR, hepatobiliary radioisotope scan Gallbladder ejection fraction study. Date and time of exam: January 29, 2025 0530 hours INDICATIONS: Abdominal pain this month Technique: 5.6 mCi of 99M Hepatolite administered. Serial imaging then obtained from immediate through 60 minutes. 1.3 mcg selective catheter Kinevac administered for gallbladder ejection fraction study. Findings: Radioisotope activity within the liver is reasonably homogenous. Gallbladder, common bile duct small bowel activity noted Impression: Gallbladder activity Abnormal gallbladder ejection fraction, 11%, normal greater than 35%
== END | disposition home or self-care (01) ==
PROVIDERS: Referring Provider Physician Assistant; Visit Provider Physician Assistant
DX: R93.2 Abnormal findings on diagnostic imaging of liver and biliary tract (principal); Z32.00 Encounter for pregnancy test, result unknown
CPT/HCPCS: 78227; 81025; A9537; J2805

== ENCOUNTER 2025-03-26 03:08 | Emergency (ER) | payer MEDICAID, SELFPAY ==
[2025-03-26 03:08] VITALS: BMI 25.6
[2025-03-26 03:15] VITALS: BP 149/82; PULSE 98; RESP 20; TEMP 37.1; O2SAT 98
--- NOTE | 2025-03-26 03:24 | PD.EDURI ---
Upper Respiratory Inf. RME/HPI General Chief Complaint: Flu Like Symptoms Stated Complaint: HEADACHE, SORE THROAT AND COUGH Time Seen by Provider: 03/26/25 03:13 Source: patient, RN notes reviewed and old records reviewed Arrival date/time: 03/26/25 03:08 Mode of arrival: ambulatory Limitations: no limitations RME / HPI RME / HPI Narrative: 39yof presents to ED for congestion, cough, sore throat that initiated yesterday. Son diagnosed with covid in ED last night. Patient c/o mild headache and generalized body aches. No sob, cp, n/v or dizziness reported. Tylenol last taken at 1800 yesterday evening. Related Data Home Medications ?Medication ?Instructions ?Recorded ?Confirmed prenat.vits,zeferino,[id number] 1 tab PO QDAY 11/06/23 01/17/24 Previous Rx's ?Medication ?Instructions ?Recorded acetaminophen 500 mg tablet 1,000 mg (2 x 500 mg) PO Q6H PRN 05/31/24 (Tylenol Extra Strength) pain #60 tabs ibuprofen 600 mg tablet 600 mg PO Q6H PRN pain #30 tabs 05/31/24 fluconazole 200 mg tablet 200 mg PO QDAY #1 tab 01/06/25 metronidazole 500 mg tablet 500 mg PO BID #20 tabs 01/06/25 phenazopyridine 200 mg tablet 200 mg PO TID #6 tabs 01/06/25 (Pyridium) sulfamethoxazole 800 1 tab PO BID #20 tabs 01/06/25 mg-trimethoprim 160 mg tablet (Bactrim DS) dextromethorphan-guaifenesin ER 60 1 tab PO Q12H PRN congestion/cough 03/26/25 mg-1,200 mg tab,extend #20 tabs release,12hr (Mucinex DM) fluticasone propionate 50 2 spray intranasal BID PRN nasal 03/26/25 mcg/actuation nasal congestion #16 grams spray,suspension (Flonase Allergy Relief) ibuprofen 600 mg tablet 600 mg PO Q6H PRN fever or pain 03/26/25 #30 tabs Allergies Allergy/AdvReac Type Severity Reaction Status Date / Time shrimp Allergy Unknown Verified 01/06/25 22:49 wheat Allergy Unknown Verified 01/06/25 22:49 chicken derived Allergy Anaphylaxis Verified 01/06/25 22:49 guava Allergy Anaphylaxis Verified 01/06/25 22:49 pineapple Allergy Anaphylaxis Verified 01/06/25 22:49 CHICKEN BROTH Allergy Anaphylaxis Uncoded 01/06/25 22:48 chicken seasoning Allergy Uncoded 01/06/25 22:48 Review of Systems Review of Systems Systems Reviewed: All systems reviewed, normal except as documented Constitutional Constitutional: Denies chills, Denies fever(s) and Reports headache(s) ENT Ears, Nose, Mouth, and Throat: Denies dizziness, Reports headache(s), Reports nasal congestion and Reports sore throat Cardiovascular Cardiovascular: Denies chest pain and Denies dyspnea Respiratory Respiratory: Reports cough and Denies dyspnea Gastrointestinal Gastrointestinal: Denies nausea and Denies vomiting Musculoskeletal Musculoskeletal: Reports myalgias Neurologic Neurologic: Denies dizziness and Reports headache(s) Past Medical History Past Medical History CARDIAC: Positive Hypertension Surgical History SURGICAL: Positive Section Social History SMOKING STATUS: Never smoker SUBSTANCE USE: does not use ALCOHOL: Never ED Exam General Limitations: Present no limitations General appearance: Present alert and in no apparent distress Head Head exam: Present atraumatic and normocephalic Eye Eye exam: Present normal appearance, PERRL and EOMI ENT ENT exam: Present normal oropharynx (no pharyngeal erythema. No tonsillar swelling or exudate, uvula midline), mucous membranes moist, TM's normal bilaterally and other (Mild UAC) Neck Neck exam: Present normal inspection and full ROM Chest Chest inspection: Present normal inspection and symmetric chest wall rise Respiratory Respiratory exam: Present normal lung sounds bilaterally and other (No wheezing, rales or rhonchi); Absent respiratory distress Cardiovascular Cardiovascular exam: Present regular rate and normal rhythm Extremities Exam Extremities exam: Present normal inspection and full ROM Neurological Exam Neurological exam: Present alert and oriented X3 Psychiatric Psychiatric exam: Present normal affect and normal mood Skin Skin exam: Present warm, dry, intact and normal color Course Quality Measures none Orders Category Date Time Status Bedside COVID-19 Antigen Test NOW Care 03/26/25 03:22 Active Ibuprofen Tab [Motrin Tab] Med 03/26/25 03:24 Discontinued 600 mg PO X1 ONE Vital Signs Vital signs: Vital Signs Temperature 98.8 F 03/26/25 03:15 Pulse Rate 98 03/26/25 03:15 Respiratory Rate 20 03/26/25 03:15 Blood Pressure 149/82 H 03/26/25 03:15 Pulse Oximetry (%) 98 03/26/25 03:15 Oxygen Delivery Method Room Air 03/26/25 03:15 Upper Respiratory Infection MDM Narrative MDM Narrative:: 39yof presents to ED for congestion, cough, sore throat that initiated yesterday. Son diagnosed with covid in ED last night. Patient c/o mild headache and generalized body aches. No sob, cp, n/v or dizziness reported. Tylenol last taken at 1800 yesterday evening. Patient is non-toxic appearing, afebrile, vitals are stable. No evidence of respiratory distress or hypoxia. Encouraged rest, fluids, symptomatic treatment, fever management prn. Stable for dc, RTED precautions given. Patient data External records reviewed:: [facility] previous records (01/06/25 ED visit for UTI) Clinical information provided by:: patient Social determinants that could affect healthcare access:: other (specify) (poor access to healthcare, acculturation difficulty) Patient has the following chronic illnesses:: HTN How is presenting disease/condition affected by chronic disease/condition?: uneffected by Evaluation data The following diagnostics were reviewed and interpreted by me:: lab results Lab and/or radiology exams considered but not ordered:: CXR: lungs clear, no respiratory distress or hypoxia Interpretation Summary: covid positive Medications / Prescriptions Medications or Prescriptions considered but not ordered:: no antibiotics or antivirals recommended at this time Medication administrations:: Medication Administration History Discontinued Medications Ibuprofen (Ibuprofen Tab 600 Mg Tablet) 600 mg PO X1 ONE Stop: 03/26/25 03:25 Last Admin: 03/26/25 03:35 Dose: 600 mg Documented By: DT above medication administered in ED Consultations Consultation(s) initiated? (list below): No Diagnosis Upper Respiratory Differential Diagnosis: other (URI, viral illness, covid, flu, pharyngitis, tonsillitis, bronchitis, pneumonia) Most likely diagnosis given after review of the tests above:: covid Admission Indicated Admission indicated?: not indicated Admission Request Was there a request for admission?: No Disposition Plan Disposition Plan: Discharge Discharge Attestation Discharge Attestation: The patient and all family members were given an opportunity to ask questions and understood the discharge instructions. Discharge instructions specifically effects, indications for sooner follow up or return to the emergency department, and the expected course of current diagnosis. Patient condition: Stable Discharge Plan Plan Patient Disposition: HOME (Self Care) Patient condition on transfer: Stable Prescriptions/Referrals Prescriptions/Med Rec: New ibuprofen 600 mg tablet 600 mg PO Q6H PRN (Reason: fever or pain) Qty: 30 0RF dextromethorphan-guaifenesin [Mucinex DM] 60-1,200 mg tablet extended release 12 hr 1 tab PO Q12H PRN (Reason: congestion/cough) Qty: 20 0RF fluticasone propionate [Flonase Allergy Relief] 50 mcg/actuation spray,suspension 2 spray intranasal BID PRN (Reason: nasal congestion) Qty: 16 0RF Rx Instructions: administer into each nostril No Action sulfamethoxazole-trimethoprim [Bactrim DS] 800-160 mg tablet 1 tab PO BID Qty: 20 0RF fluconazole 200 mg tablet 200 mg PO QDAY Qty: 1 0RF metronidazole 500 mg tablet 500 mg PO BID Qty: 20 0RF phenazopyridine [Pyridium] 200 mg tablet 200 mg PO TID Qty: 6 0RF prenat.vits,zeferino,[id number] Tablet 1 tab PO QDAY acetaminophen [Tylenol Extra Strength] 500 mg tablet 1,000 mg PO Q6H PRN (Reason: pain) Qty: 60 0RF ibuprofen 600 mg tablet 600 mg PO Q6H PRN (Reason: pain) Qty: 30 0RF Referrals: Temporary Provider,ED [Physician, Emergency Medicine] - In 1 week Problem List Clinical Impression: COVID Patient/Caregiver Discharge Instructions Education Materials: ED URI, Viral, No Abx (Adult) Print Language: Lao Stand Alone Forms: Jayna Award Info., Work/School Release, Patient Portal Info Letter PA/PAROLE AGENT Supervising Physician PA/PAROLE AGENT Supervising Physician: Carmen
[2025-03-26] MEDS: IBUPROFEN TAB 600 MG TABLET PO (03:35)
== END 2025-03-26 03:38 | disposition home or self-care (01) ==
PROVIDERS: Emergency Provider Emergency Medicine; PCP Physician Assistant
DX: J06.9 Acute upper respiratory infection, unspecified (principal)
CPT/HCPCS: 87635; 99282; A9270